=== PATIENT | female | born 1955 | race Caucasian/White ===

== ENCOUNTER 2017-06-23 05:07 | Inpatient (IN) | payer BC ==
[~2017-06-23] VITALS: Ht 157.5 cm; Wt 77.1 kg
[~2017-06-23 05:07] MED LIST: ADVAIR 250-501 EACH INH; GLIPIZIDE5 MG PO; LEVAQUIN500 MG PO; LEVEMIR 3M100 UNITS/; LEVEMIR100 UNIT/1 SC; LEVOTHYROX; LEVOTHYROXINE25 MCG PO; LOVASTATIN20 MG PO; MEDROL4 MG/DOSE- PO; METFORMIN HCL500 MG PO; PROAIR HFA INH8.5 GM INH; SINGULAIR10 MG PO
--- OUTSIDE RECORDS SUMMARY | 2017-06-23 05:09 | XMS REPORT ---
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 Allergies, Adverse Reactions, Alerts This patient has no known allergies or adverse reactions. Medications This patient has no known medications. Results Test Description Test Time Test Comments Text Results Atomic Results Result Comments BONE DXA DUAL ENERGY [place] [address] Patient Name: GURPREET VELASQUEZ MR #: [id number] : 1955 Age/Sex: 61/F Req #: [id number] [facility] Physician: Ordered by: HANSEL BANSAL MD Report #: [id number] Location: DX Room/Bed: Procedure: [id number] DX/BONE DXA DUAL ENERGY Exam Date: Exam Time: REPORT STATUS: Signed EXAM: DXA BONE DENSITY INDICATIONS: MENOPAUSE COMPARISON: None. FINDINGS: Proximal right femur neck bone mineral density (BMD) (g/cm2): 0.743 Femur T-score ( standard deviation relative to young adult mean BMD): -1.0 Femur Z-score (standard deviation relative to age-matched control group): 0.3 Proximal right femur total bone mineral density (BMD) (g/cm2): 0.860 Femur T -score (standard deviation relative to young adult mean BMD): -0.7 Femur Z-score (standard deviation relative to age-matched control group): 0.3 Lumbar bone mineral density (BMD) (g/cm2): 0.977 Lumbar T-score ( standard deviation relative to young adult mean BMD): -0.6 Lumbar Z- score (standard deviation relative to age-matched control group): 0.7 Change since prior exam (%): Femur: Not applicable. Spine: Not applicable. Change since oldest prior exam (%): Femur: Not applicable. Spine: Not applicable. CONCLUSION: 1. Bone mineral density in the right femur is classified as normal. Fracture risk is low. 2. Bone mineral density in the spine is classified as normal. Fracture risk is low. World Health Organization Classification: *The Z-score is provided for informational purposes. The T-score is preferable for clinical decisions. When comparing exams, a change of >4% is considered statistically significant. SUGGESTED RECOMMENDATIONS: Normal T Osteopenia: Consideration should be given to use of calcium supplementation, daily multiple vitamins and adequate exercise, as preventive measures against osteoporosis, if clinically indicated. Osteoporosis T Severe Osteoporosis: In addition to the above, consideration should be given to medical therapy against osteoporosis, if clinically indicated. Dictated by: Abel Banuelos M.D. on 03/19/2017 at 12:11 Electronically approved by: Abel Banuelos M.D. on 03/19/2017 at 12:11 Dictated By: ABEL BANUELOS MD 1211 Transcribed By: RIK on 03/19/17 1211 COPY TO: HANSEL BANSAL MD
[2017-06-23] MEDS ORDERED: ALBUTEROL/IPRATROPIUM 3 ML NEB NEB ONE ×2 (05:45→07:45)
[2017-06-23] MEDS ORDERED: SODIUM CHLORIDE 0.9% 1000ML 1,000 ML IV SCH (05:45)
[2017-06-23] MEDS: GLIPIZIDE 5 MG TAB PO SCH (07:30)
[2017-06-23] MEDS ORDERED: ASPIRIN 81 MG CHEW TAB PO ONE (07:45)
[2017-06-23] MEDS ORDERED: LORAZEPAM INJ 2 MG/ML VIAL IV ONE (09:45)
[2017-06-23 11:10] VITALS: BP 171/105
[2017-06-23 11:22] VITALS: BP 171/105
[2017-06-23] MEDS ORDERED: ALBUTEROL/IPRATROPIUM 3 ML NEB ONE (11:24)
[2017-06-23] MEDS ORDERED: LORAZEPAM INJ 2 MG/ML VIAL IV PRN (11:30)
[2017-06-23] MEDS: ALBUTEROL/IPRATROPIUM 3 ML NEB NEB SCH ×4 (11:30→23:00)
[2017-06-23 11:35] VITALS: BP 171/105
[2017-06-23 13:49] LABS: CREATINE KINASE MB 7.2 ng/mL (0-5.0)
[2017-06-23] MEDS ORDERED: NOVOLOG100 UNIT/1 SQ (14:18)
[2017-06-23 15:33] VITALS: BP 158/103
[2017-06-23] MEDS ORDERED: DEXTROSE 50% SYRINGE 50 ML IV PRN (16:00)
[2017-06-23] MEDS ORDERED: AZITHROMYCIN 500MG/NS 250 ML 250 ML IV SCH (16:30)
[2017-06-23] MEDS ORDERED: METHYLPREDNISOLONE SOD SUCC 125 MG/2ML VIAL IV ONE (16:45)
[2017-06-23] MEDS ORDERED: METOPROLOL TARTRATE 25 MG TAB PO SCH (17:00)
[2017-06-23] MEDS: METFORMIN HCL 500 MG TAB PO SCH (17:00)
[2017-06-23] MEDS ORDERED: SODIUM CHLORIDE 0.9% 250ML 250 ML ONE (17:09)
[2017-06-23] MEDS: FAMOTIDINE 20 MG TAB PO SCH (17:39)
[2017-06-23] MEDS: INSULIN DETEMIR 100 UNIT/ML PEN SQ SCH ×2 (17:39→21:00)
[2017-06-23] MEDS: INSULIN REGULAR, HUMAN 100 UNIT/1 ML 3ML VIAL SQ SCH ×2 (17:39→22:10)
[2017-06-23] MEDS: AMLODIPINE BESYLATE 10 MG TAB PO SCH (17:40)
[2017-06-23] MEDS: GUAIFENESIN 600MG/DEXTROMETHORPHAN 30MG TABSR PO SCH ×2 (17:41→23:08)
--- NOTE | 2017-06-23 17:52 | History and Physical ---
PRIMARY CARE PROVIDER: Dr. Boston Mancini. CHIEF COMPLAINT: Chest pain. HISTORY OF PRESENT ILLNESS: Ms. Allison is a 61-year-old lady who has a history of asthma. She was off work last week, had some bronchitis, but was feeling better and went back to work yesterday. Had a long day and went to bed early and woke up at 3 o'clock in the morning with severe shortness of breath, dyspnea, chest pressure, tightness, like an elephant sitting on her chest, feeling like she could not breathe. The sensation eased up after 10 or 15 minutes and then she felt a little better and then an hour or two later it came back the same way. She had 3 such episodes this morning before she finally came to the emergency room for evaluation. REVIEW OF SYSTEMS: She denies fever, chills or weight loss. She denies sinus congestion or sore throat. He has chest pain as noted with chest tightness and diaphoresis. She has shortness of breath and wheezing and a nonproductive cough. She denies abdominal pain, nausea, vomiting or melena. She denies dysuria or flank pain. She denies rash or pruritus. She denies joint pain or swelling. She does have some radicular pain from her neck to her right arm. She denies bleeding or bruising. She denies headache, vertigo or loss of consciousness. She denies depression, agitation, homicidal or suicidal ideation. PAST MEDICAL HISTORY: Significant for longstanding type 2 diabetes that has been poorly controlled and asthma that she has had since teenage years, more recently seems to have developed into COPD. She uses a nebulizer at home, but does not use oxygen. She quit smoking 3 years ago. REGULAR MEDICATIONS: ProAir inhaler. Advair Diskus inhaler. Nebulizer with nebulized bronchodilators as needed. NovoLog 15 units before meals. Metformin 500 mg at night, 1000 mg in the morning. Levemir 28 units at bedtime. Glipizide 10 mg daily. Levothyroxine 25 mcg daily. Lovastatin 20 mg at bedtime and Singulair 10 mg daily. ALLERGIES: She has a stated allergy to amoxicillin and codeine. FAMILY HISTORY: Remarkable for diabetes. SOCIAL HISTORY: The patient is . Mohawk is her primary language. She quit smoking 3 years ago. She drinks rarely. She does not use illegal drugs and she is generally independently functioning. PHYSICAL EXAM: PSYCHIATRIC: She is alert and oriented times 3 with normal mood and affect. CONSTITUTIONAL: She has a normal body habitus. Is in no acute distress. VITAL SIGNS: Blood pressure 158/103. Pulse 86 and regular. Respiratory rate 17. O2 sat 98%. Temperature 95.3. HEENT: Head is atraumatic. Her eyes are anicteric with clear conjunctivae. Ears and nares are without erythema or discharge. Oropharynx is clear. NECK: Is supple with no mass or thyromegaly. LYMPHATIC SYSTEM: She has no palpable cervical, axillary or inguinal adenopathy. CARDIOVASCULAR: Her heart has a regular rate and rhythm without murmur or extra heart sound. She has no carotid bruit. She has no peripheral edema. Has palpable dorsal pedal pulses. RESPIRATORY: Lungs reveal markedly diminished breath sounds with prolonged expiration, expiratory wheezing and nonproductive hacking cough. She has normal respiratory effort. GASTROINTESTINAL: Abdomen is soft without organomegaly, masses or tenderness. Normal bowel sounds present. CUTANEOUS: Her skin is warm and dry to touch with no rash or skin breakdown. MUSCULOSKELETAL: Joints are normal alignment without erythema or swelling. She has no calf tenderness. NEUROLOGIC: Exam is nonfocal with intact cranial nerves and no motor or sensory deficits. DIAGNOSTIC STUDIES: Her EKG shows normal sinus rhythm with low voltage consistent with pulmonary disease pattern but no ischemic changes. Her glucose is 216. Troponin 0.222. No other labs available. IMPRESSION AND PLAN 1. Chest pain, rule out myocardial infarction. The patient is getting serial cardiac enzymes and EKGs to rule out myocardial injury. Her symptoms being ominous and due to her age and previous smoking history and poorly controlled diabetes, the patient is a high a risk for cardiovascular disease and will consult cardiology for stress test and the risk stratification. Will also check her hemoglobin A1c level and lipid profile. 2. Bronchopneumonia with acute asthma exacerbation or chronic obstructive pulmonary disease exacerbation. Patient is getting oxygen, aggressive nebulizer treatments, IV Zithromax and Mucinex for expectoration and IV Solu-Medrol times 3 doses. 3. Poorly controlled type 2 diabetes. Will continue glipizide and metformin. Will increase metformin to 1000 twice a day. Will give Levemir 20 units q.12 hours as well as sliding scale insulin. Would expect her blood sugar to go up with the IV steroids initially. 4. Elevated blood pressure without previous diagnosis of hypertension. Her blood pressure is elevated possibly due to the chest pain. Will give one dose of beta russel today, and start her on Norvasc daily. 5. For prophylaxis, the patient will be using SCDs for DVT prophylaxis and Pepcid for GI prophylaxis. Job#: [id number] GH
[2017-06-23 19:00] VITALS: BP 155/86
[2017-06-23] MEDS: HYDROCODONE/APAP 5MG-325MG TAB PO PRN (19:57)
[2017-06-23 20:00] VITALS: BP 155/86
[2017-06-23] MEDS ORDERED: NON-FORMULARY MEDICATION (Lovastatin 20 MG) PO SCH (21:00)
[2017-06-23] MEDS ORDERED: SIMVASTATIN 20 MG TAB PO SCH (21:00)
[2017-06-23] MEDS ORDERED: MONTELUKAST SODIUM 10 MG TAB PO SCH (21:00)
[2017-06-23] MEDS ORDERED: INSULIN DETEMIR 100 UNIT/ML PEN SQ SCH (21:42)
[2017-06-23] MEDS ORDERED: INSULIN REGULAR, HUMAN 100 UNIT/1 ML 3ML VIAL SQ SCH (22:00)
[2017-06-23] MEDS ORDERED: NITROGLYCERIN 0.4 MG SUBL SL PRN (22:00)
[2017-06-23] MEDS ORDERED: MORPHINE SULFATE 2 MG/ML SYR IV PRN (22:00)
[2017-06-23] MEDS: METHYLPREDNISOLONE SOD SUCC 125 MG/2ML VIAL IV SCH (23:08)
[2017-06-24] VITALS: BP 124/73
[2017-06-24] MEDS: ALBUTEROL/IPRATROPIUM 3 ML NEB NEB SCH ×3 (01:32→11:00)
[2017-06-24 04:00] VITALS: BP 121/80
[2017-06-24] MEDS ORDERED: LEVOTHYROXINE SODIUM 25 MCG TABLET PO SCH (06:00)
[2017-06-24] MEDS: GUAIFENESIN 600MG/DEXTROMETHORPHAN 30MG TABSR PO SCH ×2 (06:00→12:00)
--- NOTE | 2017-06-24 06:31 | Diagnostic Imaging Report ---
CHEST SINGLE (PORTABLE), 06/24/2017 7:00 AM Technique: CHEST SINGLE (PORTABLE) Comparison: 07/19/2014 Clinical history: Chest pain Findings: Stable appearance of the heart, mediastinum, lungs and pleural spaces. Unchanged bibasilar linear opacities which could be due to atelectasis or scarring. Impression: Stable chest. Signed by: Dr Frida Lebron MD on 06/24/2017 6:27 AM
[2017-06-24 06:39] LABS: BASOPHILS # (AUTO) 0.1 (0.0-0.1); BASOPHILS % 0.4 % (0.0-1.0); HEMATOCRIT 40.6 % (34.2-44.1); HEMOGLOBIN 13.5 g/dL (12.0-16.0); LYMPHOCYTES # (AUTO) 1.9 (1.0-3.2); LYMPHOCYTES % 14.9 % (18.0-39.1); MEAN CORPUSCULAR HEMOGLOBIN 29.7 pg (28-32); MEAN CORPUSCULAR HGB CONC 33.3 g/dL (31-35); MEAN CORPUSCULAR VOLUME 89.4 fL (81-99); MONOCYTES # (AUTO) 0.4 (0.2-0.8); MONOCYTES % 3.2 % (4.4-11.3); NEUTROPHILS # (AUTO) 10.4 (2.1-6.9); PLATELET COUNT 253 x10e3/uL (140-360); RED BLOOD COUNT 4.54 x10e6/uL (3.6-5.1); RED CELL DISTRIBUTION WIDTH 14.1 % (11.7-14.4)
[2017-06-24 06:51] LABS: ANION GAP 13.2 mmol/L (8-16); BLOOD UREA NITROGEN 14 mg/dL (7-26); BUN/CREATININE RATIO 19 (6-25); CALCIUM 9.2 mg/dL (8.4-10.2); CARBON DIOXIDE 22 mmol/L (22-29); CHLORIDE 107 mmol/L (98-107); CHOL/HDL RATIO 2.8 (3.0-3.6); CHOLESTEROL 181 MD/DL (0-199); CREATININE, SERUM 0.75 mg/dL (0.57-1.11); EST GLOMERULAR FILTRATION RATE > 60 ML/MIN (60-); GLUCOSE 265 mg/dL (74-118); HDL CHOLESTEROL 65 MG/DL (40-60); LDL CHOLESTEROL 99 MG/DL (60-130); POTASSIUM 4.2 mmol/L (3.5-5.1); SODIUM 138 mmol/L (136-145); TRIGLYCERIDES 84 MG/DL (0-149)
[2017-06-24 07:05] LABS: FREE T4 (FREE THYROXINE) 0.95 ng/dL (0.9-1.8); THYROID STIMULATING HORMONE 1.634 uIU/mL (0.350-4.940)
[2017-06-24 07:12] LABS: B-TYPE NATRIURETIC PEPTIDE2 227.9 pg/mL (0-100)
[2017-06-24] MEDS: GLIPIZIDE 5 MG TAB PO SCH (07:30)
[2017-06-24] MEDS: INSULIN REGULAR, HUMAN 100 UNIT/1 ML 3ML VIAL SQ SCH ×2 (07:30→12:00)
[2017-06-24] MEDS: HYDROCODONE/APAP 5MG-325MG TAB PO PRN ×2 (07:42→14:06)
[2017-06-24] MEDS: METFORMIN HCL 500 MG TAB PO SCH (08:00)
[2017-06-24] MEDS: METHYLPREDNISOLONE SOD SUCC 125 MG/2ML VIAL IV SCH (08:00)
[2017-06-24 08:14] VITALS: BP 119/71
[2017-06-24] MEDS: INSULIN DETEMIR 100 UNIT/ML PEN SQ SCH (08:48)
[2017-06-24] MEDS ORDERED: ENOXAPARIN SOD INJ 40 MG/0.4 ML SYR SC SCH ×2 (09:00→17:00)
[2017-06-24] MEDS ORDERED: ASPIRIN 81 MG ENTERIC COATED PO SCH (09:00)
[2017-06-24] MEDS ORDERED: ASPIRIN 325 MG TAB PO ONE (09:00)
[2017-06-24] MEDS ORDERED: METHYLPREDNISOLONE SOD SUCC 125 MG/2ML VIAL IV NR (11:00)
[2017-06-24] MEDS: FAMOTIDINE 20 MG TAB PO SCH (11:05)
[2017-06-24] MEDS: AMLODIPINE BESYLATE 10 MG TAB PO SCH (11:26)
[2017-06-24 11:52] VITALS: BP 137/70
--- NOTE | 2017-06-24 12:46 | Consultation ---
DATE OF CONSULTATION: June 24, 2017 CARDIOLOGY CONSULTATION REQUESTING PHYSICIAN: Dr. Strauss. REASON FOR CONSULT: Chest pain. HISTORY OF PRESENTING ILLNESS: Ms. Allison is a 61-year-old lady with past medical history as listed below, presented with complaints of chest pain. Patient states that on Thursday morning at around 3 a.m. patient was short of breath, and she took a nebulizer and then experienced some severe chest pain that lasted for several hours. She went to the urgent care, where she was evaluated and then sent to the hospital. Pain lasted for several hours. After she was given some medications, the pain got better. She denies any abdominal pain, vomiting or diarrhea. REVIEW OF SYMPTOMS CONSTITUTIONAL: Has some fatigue and weakness. HEENT: No headache, blurring of vision, seizures or syncope. CARDIOVASCULAR: Had chest pain. Had dyspnea. No orthopnea or PND. RESPIRATORY: No cough, fever or expectoration. GI: No abdominal pain, vomiting, diarrhea. : No dysuria, frequency, incontinence. ALLERGIES: AMOXICILLIN, CODEINE. MEDICATIONS: See list. PAST MEDICAL HISTORY 1. History of diabetes mellitus, uncontrolled. 2. History of pancreas problems. 3. History of hypothyroidism. 4. History of anxiety. 5. History of left lower extremity fracture. SOCIAL HISTORY: Patient used to smoke in the past, smoked for about 15 years, quit about 3 years back. Does not drink alcohol. FAMILY HISTORY: Her father had Hodgkin's disease. PHYSICAL EXAMINATION GENERAL: A well-built and nourished lady, alert, oriented, not in any obvious distress. VITAL SIGNS: Heart rate is 93. Blood pressure 119/71. Respiratory rate is 18. Temperature is 97.8. HEENT: Atraumatic. NECK: No JVD, bruit, thyromegaly, lymphadenopathy. CARDIOVASCULAR: First and second heart sounds heard. No murmurs, rubs or gallops were appreciated. CHEST: Decreased air entry at the bases. No adventitious sounds appreciated. ABDOMINAL: Soft, nontender. EXTREMITIES: No edema. LABS: Sodium is 138, potassium 4.2, chloride is 107, bicarb is 22, BUN is 14, creatinine is 0.7, glucose is 265. Hemoglobin 13.5, hematocrit is 40.6, platelets are 253, white count is 12.7. EKG shows sinus rhythm at 88 beats per minute, normal axis, normal intervals, nonspecific ST-T changes. Troponins are 0.22, 2.1 and 2.16. IMPRESSION 1. [id number] myocardial infarction. 2. Bronchopneumonia. 3. Diabetes mellitus. 4. History of hypothyroidism. 5. Elevated blood pressure. 6. History of anxiety. PLAN 1. Patient is currently [id number]. She has ruled in for an OR. Continue with aspirin, statins, beta blockers, Lovenox. 2. Discussed with patient about further cardiac workup including cardiac catheterization. Explained procedure, risks, benefits, complications, alternatives. She would like to be transferred to [facility] to have a procedure there. She feels comfortable at a bigger hospital. 3. She will need an echocardiogram to assess LV function and valvular function. I have discussed my impression and plan of management with the patient, and she understands it. As always, appreciate and thank you very much for your referrals. Job#: [id number] KELSEY
[2017-06-24 14:06] VITALS: BP 118/56
[2017-06-24] MEDS ORDERED: METOPROLOL SUCCINATE 25 MG TAB XL PO SCH (17:00)
== END 2017-06-24 15:00 | disposition short-term general hospital (02) | DRG 280 ==
LOC: FSED 05:07 → MED/SURG2 10:20 → INTOOBSV 10:20 → OBSVTOIN 06-24 11:19
PROVIDERS: ADMIT Internal Medicine; ATTEND Internal Medicine
DX: I21.4 Non-ST elevation (NSTEMI) myocardial infarction (principal); J18.0 Bronchopneumonia, unspecified organism; E11.65 Type 2 diabetes mellitus with hyperglycemia; J45.41 Moderate persistent asthma with (acute) exacerbation; E78.5 Hyperlipidemia, unspecified; E03.9 Hypothyroidism, unspecified; J20.9 Acute bronchitis, unspecified; F41.1 Generalized anxiety disorder; Z88.1 Allergy status to other antibiotic agents; Z88.5 Allergy status to narcotic agent; Z87.891 Personal history of nicotine dependence; R03.0 Elevated blood-pressure reading, without diagnosis of hypertension
CPT/HCPCS: 36415; 71045; 71046; 80048; 80053; 80061; 82550; 82553; 82948; 83036; 83880; 84439; 84443; 84484; 85025; 93005; 94640; 96360; 99283; G0378; J0456; J2060; J2270; J2930; J7050

== ENCOUNTER 2023-05-14 18:55 | Emergency (ER) | payer OTHER, MEDICARE ==
[~2023-05-14] VITALS: Ht 157.5 cm; Wt 72.6 kg
[~2023-05-14 18:55] MED LIST changes: +NOVOLOG100 UNIT/1 SQ
[2023-05-14] MEDS ORDERED: SODIUM CHLORIDE 0.9% 500ML 500 ML IV STA (18:59)
[2023-05-14] MEDS ORDERED: NITROGLYCERIN 2% OINT 1 GM PKT TOP ONE (19:00)
[2023-05-14] MEDS ORDERED: FAMOTIDINE 20 MG/2 ML VIAL IV ONE ×2 (19:00→19:22)
[2023-05-14] MEDS ORDERED: ACETAMINOPHEN 325 MG TAB PO ONE (19:00)
[2023-05-14] MEDS ORDERED: KETOROLAC TROMETHAMINE 30 MG/ML VIAL IV ONE (19:00)
[2023-05-14] MEDS ORDERED: ASPIRIN 81 MG CHEW TAB PO ONE (19:15)
[2023-05-14] MEDS ORDERED: ASPIRIN 81 MG CHEW TAB ONE (19:21)
[2023-05-14] MEDS ORDERED: ACETAMINOPHEN 325 MG TAB ONE (19:21)
[2023-05-14] MEDS ORDERED: NITROGLYCERIN 2% OINT 1 GM PKT ONE (19:21)
[2023-05-14] MEDS ORDERED: KETOROLAC TROMETHAMINE 30 MG/ML VIAL ONE (19:21)
[2023-05-14] MEDS ORDERED: SODIUM CHLORIDE 0.9% 500ML 500 ML ONE (19:22)
[2023-05-14] MEDS ORDERED: INSULIN REGULAR, HUMAN 100 UNIT/1 ML ONE (20:15)
[2023-05-14] MEDS ORDERED: INSULIN REGULAR, HUMAN 100 UNIT/1 ML IV ONE (20:15)
[2023-05-14] MEDS ORDERED: INSULIN REGULAR, HUMAN 100 UNIT/1 ML SQ ONE (20:15)
[2023-05-14] MEDS ORDERED: CEFTRIAXONE 1 GM VIAL ONE (20:25)
[2023-05-14] MEDS ORDERED: CORICIDIN HBP1 EAC1 PO (20:28)
[2023-05-14] MEDS ORDERED: TAMIFLU75 MG PO (20:28)
[2023-05-14] MEDS ORDERED: LEVOFLOXACIN250 MG PO (20:28)
[2023-05-14 20:41] VITALS: BP 120/56; PULSE 96; RESP 18; TEMP 97.8; O2SAT 97
== END 2023-05-14 20:41 | disposition home or self-care (01) ==
LOC: FSED 19:00
DX: R06.02 Shortness of breath (principal); R07.9 Chest pain, unspecified; J40 Bronchitis, not specified as acute or chronic; R05.9 Cough, unspecified; E11.65 Type 2 diabetes mellitus with hyperglycemia; F41.9 Anxiety disorder, unspecified; Z11.52 Encounter for screening for COVID-19; R94.31 Abnormal electrocardiogram [ECG] [EKG]; Z95.1 Presence of aortocoronary bypass graft
CPT/HCPCS: 0223U; 71046; 80053; 83880; 84484; 85025; 87400; 93005; 99284; J0696; J1885; J7040